=== PATIENT | male | born 1940 | race Hispanic/Latino ===

== ENCOUNTER → 2017-11-25 | Outpatient (CLI) | payer OTHER ==
[~2017-11-25] MED LIST: REGADENOSON 0.4 MG/5 ML PF SYG IVP SCH
== END | disposition home or self-care (01) ==
LOC: SHCH 08:40
PROVIDERS: ATTEND Internal Medicine Cardiovascular Disease
DX: R55 Syncope and collapse (principal)
CPT/HCPCS: 78452; 93017; 96374; A9500 ×2; J2785

== ENCOUNTER → 2017-12-02 | Outpatient (CLI) | payer OTHER | END | disposition home or self-care (01) | LOC: SHCH 12:46 | PROVIDERS: ATTEND Internal Medicine Cardiovascular Disease | DX: I07.1 Rheumatic tricuspid insufficiency (principal); R55 Syncope and collapse | CPT/HCPCS: 93306 ==

== ENCOUNTER → 2018-10-31 | Outpatient (CLI) | payer OTHER | END | disposition home or self-care (01) | LOC: SHCH 10:00 | PROVIDERS: ATTEND Internal Medicine Cardiovascular Disease | DX: I71.4 Abdominal aortic aneurysm, without rupture (principal) | CPT/HCPCS: 93978 ==

== ENCOUNTER → 2019-06-04 | Outpatient (CLI) | payer OTHER | END | disposition home or self-care (01) | LOC: SHCH 11:47 | PROVIDERS: ATTEND Internal Medicine Cardiovascular Disease | DX: I71.4 Abdominal aortic aneurysm, without rupture (principal) | CPT/HCPCS: 93978 ==

== ENCOUNTER → 2019-06-26 | Outpatient (CLI) | payer OTHER ==
[~2019-06-26] MED LIST changes: +IOHEXOL-350 75 ML VIAL IV ONE; -REGADENOSON 0.4 MG/5 ML PF SYG IVP SCH
== END | disposition home or self-care (01) ==
LOC: RAH 08:37
PROVIDERS: ATTEND Internal Medicine Cardiovascular Disease
DX: I71.4 Abdominal aortic aneurysm, without rupture (principal); N28.1 Cyst of kidney, acquired; K57.30 Diverticulosis of large intestine without perforation or abscess without bleeding; I70.8 Atherosclerosis of other arteries; I47.1 Supraventricular tachycardia; I10 Essential (primary) hypertension
CPT/HCPCS: 74174; Q9967

== ENCOUNTER 2021-11-24 15:03 | Emergency (ER) | payer OTHER ==
[~2021-11-24] VITALS: Ht 165.1 cm; Wt 72.6 kg
[2021-11-24] MEDS ORDERED: ONDANSETRON 4MG INJ IVP ONE (15:30)
[2021-11-24] MEDS ORDERED: 0.9%NACL 1000ML 1,000 ML IV ONE ×2 (15:30→15:40)
[2021-11-24] MEDS ORDERED: MECLIZINE HCL 25 MG TABLET PO ONE (15:30)
[2021-11-24 15:39] LABS: BASOPHILS % (AUTO) 0.7 % (0.0-5.0); EOSINOPHILS % (AUTO) 2.5 % (0.0-8.0); HEMATOCRIT 43.2 % (42-54); LYMPHOCYTES % (AUTO) 23.6 % (21.0-51.0); MEAN CORPUSCULAR HEMOGLOBIN 29.1 pg (27.0-33.0); MEAN CORPUSCULAR HGB CONC 34.3 g/dL (32.0-36.0); MONOCYTES % (AUTO) 9.1 % (3.0-13.0); NEUTROPHILS % (AUTO) 63.8 % (40.0-77.0); PLATELET COUNT (AUTO) 148 K/uL (130-400); RED BLOOD CELL COUNT(AUTO) 5.08 MIL/uL (4.50-6.20); RED CELL DISTRIBUTION WIDTH 12.6 % (11.0-15.5); WHITE BLOOD COUNT (AUTO) 6.8 K/uL (4.8-10.8)
[2021-11-24] MEDS ORDERED: MECLIZINE HCL 25 MG TABLET ONE (15:40)
[2021-11-24] MEDS ORDERED: ONDANSETRON 4MG INJ ONE (15:40)
[2021-11-24 15:52] LABS: CREATININE 1.7 mg/dL (0.5-1.5); POTASSIUM 3.8 mmol/L (3.5-5.1)
[2021-11-24 16:00] LABS: APPEARANCE,URINE Clear (CLEAR); BILIRUBIN,URINE Negative (NEGATIVE); COLOR,URINE Yellow (YELLOW); GLUCOSE, URINE (UA) Negative (NEGATIVE); KETONES,URINE Negative (NEGATIVE); LEUKOCYTE ESTERASE ,URINE Negative (NEGATIVE); NITRATE,URINE Negative (NEGATIVE); OCCULT BLOOD,URINE Negative (NEGATIVE); PROTEIN,URINE Negative (NEGATIVE)
[2021-11-24 16:02] LABS: ALBUMIN 3.4 g/dL (3.5-5.0); BILIRUBIN,TOTAL 0.8 mg/dL (0.2-1.0); TOTAL PROTEIN, SERUM 6.6 g/dL (6.0-8.3)
[2021-11-24] MEDS ORDERED: ONDA4TAB10 PO (16:40)
[2021-11-24] MEDS ORDERED: MECL-226 PO (16:40)
[2021-11-24 17:03] VITALS: BP 145/80
== END 2021-11-24 17:09 | disposition home or self-care (01) ==
LOC: EDH 15:03
DX: R42 Dizziness and giddiness (principal); E86.9 Volume depletion, unspecified; R11.2 Nausea with vomiting, unspecified; F03.90 Unspecified dementia, unspecified severity, without behavioral disturbance, psychotic disturbance, mood disturbance, and anxiety; E78.00 Pure hypercholesterolemia, unspecified; Z88.6 Allergy status to analgesic agent; Z90.89 Acquired absence of other organs; Z98.890 Other specified postprocedural states
CPT/HCPCS: 36415; 80053; 81003; 84484; 85025; 93005; 96361; 96374; 99284; J2405; J7030

== ENCOUNTER → 2023-02-09 | Outpatient (CLI) | payer OTHER ==
[~2023-02-09] MED LIST changes: -IOHEXOL-350 75 ML VIAL IV ONE; +MECL-226 PO; +ONDA4TAB10 PO
[2023-02-09 10:11] LABS: BASOPHILS % (AUTO) 0.9 % (0.0-5.0); EOSINOPHILS % (AUTO) 3.5 % (0.0-8.0); HEMATOCRIT 46.6 % (42-54); LYMPHOCYTES % (AUTO) 26.2 % (21.0-51.0); MEAN CORPUSCULAR HEMOGLOBIN 28.7 pg (27.0-33.0); MEAN CORPUSCULAR HGB CONC 32.8 g/dL (32.0-36.0); MEAN CORPUSCULAR VOLUME 87.3 fL (79-99); MONOCYTES % (AUTO) 10.4 % (3.0-13.0); NEUTROPHILS % (AUTO) 58.7 % (40.0-77.0); PLATELET COUNT (AUTO) 155 K/uL (130-400); RED BLOOD CELL COUNT(AUTO) 5.34 MIL/uL (4.50-6.20); RED CELL DISTRIBUTION WIDTH 13.7 % (11.0-15.5); WHITE BLOOD COUNT (AUTO) 7.5 K/uL (4.8-10.8)
[2023-02-09 10:19] LABS: HEMOGLOBIN A1C 5.5 % (4.0-6.0)
[2023-02-09 10:50] LABS: ALBUMIN 3.7 g/dL (3.5-5.0); CREATININE 1.8 mg/dL (0.5-1.5); POTASSIUM 4.2 mmol/L (3.5-5.1); THYROID STIMULATING HORMONE 2.16 uIU/mL (0.36-3.74); TOTAL PROTEIN, SERUM 7.3 g/dL (6.0-8.3)
== END | disposition home or self-care (01) ==
LOC: RAH 08:57
PROVIDERS: ATTEND Internal Medicine Gastroenterology
DX: R53.1 Weakness (principal); Z79.899 Other long term (current) drug therapy
CPT/HCPCS: 36415; 80053; 82306; 82607; 82746; 83036; 84443; 85025

== ENCOUNTER → 2023-10-28 | Outpatient (CLI) | payer OTHER ==
[2023-10-28 10:13] LABS: BASOPHILS # (AUTO) 0.06 K/uL (0.00-0.20); BASOPHILS % (AUTO) 0.9 % (0.0-5.0); EOSINOPHILS # (AUTO) 0.18 K/uL (0.00-0.70); EOSINOPHILS % (AUTO) 2.7 % (0.0-8.0); HEMATOCRIT 45.4 % (42-54); IMMATURE GRANULOCYTE ABSOLUTE 0.02 K/uL (0-1); LYMPHOCYTES # (AUTO) 1.6 K/uL (1.0-4.8); LYMPHOCYTES % (AUTO) 23.7 % (21.0-51.0); MEAN CORPUSCULAR HEMOGLOBIN 29.5 pg (27.0-33.0); MEAN CORPUSCULAR HGB CONC 33.9 g/dL (32.0-36.0); MONOCYTES # (AUTO) 0.6 K/uL (0.1-1.0); MONOCYTES % (AUTO) 9.3 % (3.0-13.0); NEUTROPHILS # (AUTO) 4.3 K/uL (1.8-7.7); NEUTROPHILS % (AUTO) 63.1 % (40.0-77.0); PLATELET COUNT (AUTO) 156 K/uL (130-400); RED BLOOD CELL COUNT(AUTO) 5.22 MIL/uL (4.50-6.20); RED CELL DISTRIBUTION WIDTH 12.9 % (11.0-15.5); WHITE BLOOD COUNT (AUTO) 6.7 K/uL (4.8-10.8)
[2023-10-28 10:59] LABS: ALBUMIN 3.5 g/dL (3.5-5.0); BILIRUBIN,TOTAL 1.3 mg/dL (0.2-1.0); CREATININE 1.6 mg/dL (0.5-1.3); POTASSIUM 4.3 mmol/L (3.5-5.1); THYROID STIMULATING HORMONE 2.52 uIU/mL (0.36-3.74); TOTAL PROTEIN, SERUM 6.9 g/dL (6.0-8.3)
== END | disposition home or self-care (01) ==
LOC: RAH 09:24
PROVIDERS: ATTEND Family Medicine
DX: Z00.00 Encounter for general adult medical examination without abnormal findings (principal); I10 Essential (primary) hypertension; E78.5 Hyperlipidemia, unspecified; M25.551 Pain in right hip
CPT/HCPCS: 36415; 73502; 80053; 80061; 84443; 85025

== ENCOUNTER 2025-07-13 21:16 | Emergency (ER) | payer OTHER ==
[~2025-07-13] VITALS: Ht 167.6 cm; Wt 64.4 kg
[~2025-07-13 21:16] MED LIST changes: +ONDA-243 PO; -ONDA4TAB10 PO
--- NOTE | 2025-07-13 22:46 | ERN ---
General Chief Complaint: Mechanical Fall Stated Complaint: FALL Time Seen by MD: 21:26 Source: patient History of Present Illness Initial Comments Patient is a an 85-year-old gentleman coming in after he fell down. Per patient he was help in his ambulate fell back 5 hours prior to arrival. He states he hit himself in the back of his neck he has got some discomfort in his neck. He is able to move his neck without limitations but some discomfort is present. Allergies: Coded Allergies: morphine (Unverified Allergy, Unknown, 05/05/17) Home Meds Active Scripts Meclizine HCl (Meclizine HCl) 12.5 Mg Tablet, 12.5 MG PO TIDP PRN for DIZZINESS, #12 TAB 0 Refills Prov:LÓPEZ WINN MD 11/24/21 Ondansetron (Ondansetron Odt) 4 Mg Tab.rapdis, 4 MG PO TIDP PRN for NAUSEA/VOMITING, #12 TAB 0 Refills Prov:LÓPEZ WINN MD 11/24/21 Past Medical History Past Medical History: Dementia, High Cholesterol Past Surgical History: Appendectomy Surgical History Other: KNEE Social History Social History: Other ROS Dictation CONSTITUTIONAL: No chills, no fever, no weakness, no diaphoresis, no malaise. HEAD/FACE: No signs of trauma. EENT: No eye pain, no blurred vision, no tearing, no double vision, no ear pain, no ear discharge, no nose pain, no nasal congestion, no throat pain, no throat swelling, no mouth pain. RESPIRATORY: No cough, no orthopnea, no SOB, no stridor, no wheezing. CARDIOVASCULAR: No chest pain, no edema, no palpitations, no syncope. GASTROINTESTINAL/ABDOMINAL: No abdominal pain, no constipation, no diarrhea, no nausea, no vomiting. GENITOURINARY: No abnormal discharge, no dysuria, no frequent urination, no hematuria. No complaints of pain in the genitals. MUSCULOSKELETAL: No back pain, no gout, no joint pain, no joint swelling, no muscle pain, no muscle stiffness,neck pain. INTEGUMENTARY: No change in color, no change in hair/nails, no dryness, no lesion, no lumps, no rash. NEUROLOGICAL/PSYCH: No anxiety, not depressed, no emotional problem, no headache, no numbness, no pre-existing deficit, no history of seizures, no tremors, no weakness. HEMATOLOGIC/LYMPHATIC: Not anemic, no history of blood clots, no apparent bleeding, no bruising, glands not swollen. All Systems Negative, Except as Noted. Physical Exam Physical Exam Dictation VITAL SIGNS: Reviewed. GENERAL APPEARANCE: Alert, oriented x3, no acute distress, obese. HEAD AND FACE: Non-traumatic. EYES: PERRL, pink conjunctivas, eyelid no trauma, anterior chamber clear. EARS: Pinnas intact and no signs of trauma or erythema. Ear canals clear and no discharge. TMs no erythema. NOSE: No discharge, no bleeding. OROPHARYNX: Mouth normal, teeth no caries, tongue pink. Pharynx clear, no erythema. Tonsils no exudates, no abscesses noted. Mucous membrane moist. NECK: Supple, non-tender, no thyromegaly, no masses, no JVD, no bruits. BREAST: Deferred. CHEST: No tenderness, no crepitus, no paradoxical movement, no retractions. LUNGS: Clear, well-ventilated, symmetric, no rales, no wheezing, no rhonchi, no stridor, good breath sounds bilaterally. HEART: Regular rate, regular rhythm, no murmur, no gallops. VASCULAR: No peripheral edema. ABDOMEN: Soft, positive bowel sounds, nondistended, no guarding, nontender, no rebound, no masses no hepatomegaly, no splenomegaly, no Solis's sign, no holly ias. RECTAL: Deferred. GENITAL: Deferred. NEUROLOGICAL: Normal speech, gross motor function intact, gross sensory function intact. MUSCULOSKELETAL: Neck tender, full range of motion, back nontender, full range of motion. EXTREMITIES: Nontender, full range of motion. SKIN: Color pink, dry, no turgor, no rash, no lacerations, no abrasions, no contusions. LYMPHATICS: Deferred. Results Laboratory and Microbiology Labs Reviewed?: Yes EKG/XRAY/US/CT/MRI CT Scan Comment [facility] [address] [place] [address] IMAGING REPORT Signed PATIENT: ABBIE LA MR#: [id number] : 1940 SEX: M AGE: 85 LOCATION: [facility] ORDER 33 STATUS: REG ER REPORT#: [id number] SERVICE 32 REASON: fall ORDERING PHYSICIAN: RACHAEL WEISS MD PROCEDURE: C SPIN WO - CT CERVICAL SPINE W/O CONTRAST EXAM: CT Cervical Spine Without IV contrast. CLINICAL HISTORY: Fall. TECHNIQUE: Axial computed tomography images of the cervical spine without intravenous contrast. Sagittal and coronal reconstructions are available and reviewed. A CT scan is done according to ALARA (As Low As Reasonably Achievable). COMPARISON: None provided. FINDINGS: ALIGNMENT: Straightening of the cervical lordosis, which may represent paraspinal muscle spasm. 8 to 9 mm malalignment between the lateral masses of the atlas and axissuggests rotatory subluxation versus instability- Best appreciated in image 40 of series 8. DEGENERATIVE CHANGES: Multilevel moderate spondylosis. Moderate diffuse disc bulge from C3-C4 through C6-C7 levels in the form of disc osteophyte complex and bilateral uncovertebral joint spurring causing indentation on the anterior thecal sac, moderate narrowing of the bilateral neural foramina, with possible impingement on the exiting nerve roots. No significant bony spinal canal stenosis. SOFT TISSUES: The prevertebral soft tissues are within normal limits. BONES: Incompletely imaged deformed right mid-clavicle. No acute fracture or aggressive-appearing osseous lesion. IMPRESSION: No acute fracture. Malalignment between the lateral masses of the atlas and axis suggests rotatory subluxation versus instability. Moderate spondylosis. Mild bony neural foraminal stenosis from C3-C4 to C6-C7 levels. No significant spinal canal stenosis. Straightening of the cervical lordosis, which may represent paraspinal muscle spasm. Incompletely imaged deformed right mid-clavicle, likely of chronic etiology. Recommended MRI for further evaluation. /[place]irby DICTATED BY: LARISSA MARTEL Jr., MD DATE: 07/14/2516 ELECTRONICALLY SIGNED BY: LARISSA MARTEL Jr., MD DATE: 07/14/2516 [facility] MDM: Differential diagnosis: Fall, neck strain, muscle strain, Rationale: Tests considered and ordered secondary to shared decision making include: Previous outside records reviewed: Old ER visits. Risk of complication and/or morbidity or mortality of patient management: None Medications-Per medication reconciliation Need for hospitalization: Patient does not meet criteria for hospitalization. Need for emergency major/minor surgery: No Patient is a 85-year-old coming in complaining of neck discomfort. Patient states he does not have any radiculopathy or neuropathy. CT disclosed a malalignment to the lateral masses of the at less than axis, recommendation may include immobilization physical therapy or surgical intervention in the pending in his severity of the condition. I will place a cervical soft collar and we will advise patient appropriate follow up with PCP and/or neurosurgeon. On physical exam no cord compression symptoms such as radiculopathy or weakness on his extremities present. Patient has been started with a softball has been advise him red flags to look for such as radiculopathy or muscular weakness. ED Course Orders Procedure Category Date Status Time Ct Cervical Spine W/O CT 07/13/25 Resulted Contrast 21:33 Vital Signs Date Time Temp Pulse Resp B/P (MAP) Pulse Ox O2 Delivery O2 Flow Rate FiO2 07/13/25 21:24 96.1 60 16 164/93 97 Room Air DX & DISP Disposition: Discharge Departure Impression: Primary Impression: Atlanto-axial subluxation Condition: Stable Additional Instructions: FOLLOW-UP WITH PRIMARY CARE PROVIDER IN 1 TO 2 DAYS. TAKE MEDICATIONS DIRECTED HERE IN THE EMERGENCY ROOM. OKAY TO CONTINUE HOME MEDICATIONS UNLESS OTHERWISE DISCUSSED DURING YOUR VISIT IN THE EMERGENCY ROOM TODAY. RETURN TO YOUR NEAREST EMERGENCY ROOM IF SYMPTOMS WORSEN OR IF THERE IS NO IMPROVEMENT. C ALL 911 IF YOU NEED IMMEDIATE ASSISTANCE. TAKE TYLENOL [id number] NEEDED AND IF NO CONTRAINDICATIONS ARE PRESENT. INCREASE ORAL HYDRATION. A WOUND CULTURE OR URINE CULTURE WAS ORDERED HERE IN THE EMERGENCY ROOM DEPARTMENT PLEASE FOLLOW-UP WITH PRIMARY CARE PROVIDER AND ADVISE THEM TO GET REPORTS FROM OUR FACILITY. IF YOU HAD ANY MANUEL WRAP/SPLINTS THAT WERE APPLIED HERE, PLEASE DO NOT REMOVE THEM UNTIL YOU SEE YOUR PRIMARY CARE OR SPECIALTY. Referrals: Referrals: JOSE F THURSTON Jr., MD (PCP) ALYSON LERNER MD Time of Disposition: 23:28 RACHAEL WEISS MD Jul 13, 2025 22:46
--- NOTE | 2025-07-13 23:19 | HMCIMG ---
EXAM: CT Cervical Spine Without IV contrast. CLINICAL HISTORY: Fall. TECHNIQUE: Axial computed tomography images of the cervical spine without intravenous contrast. Sagittal and coronal reconstructions are available and reviewed. A CT scan is done according to ALARA (As Low As Reasonably Achievable). COMPARISON: None provided. FINDINGS: ALIGNMENT: Straightening of the cervical lordosis, which may represent paraspinal muscle spasm. 8 to 9 mm malalignment between the lateral masses of the atlas and axissuggests rotatory subluxation versus instability- Best appreciated in image 40 of series 8. DEGENERATIVE CHANGES: Multilevel moderate spondylosis. Moderate diffuse disc bulge from C3-C4 through C6-C7 levels in the form of disc osteophyte complex and bilateral uncovertebral joint spurring causing indentation on the anterior thecal sac, moderate narrowing of the bilateral neural foramina, with possible impingement on the exiting nerve roots. No significant bony spinal canal stenosis. SOFT TISSUES: The prevertebral soft tissues are within normal limits. BONES: Incompletely imaged deformed right mid-clavicle. No acute fracture or aggressive-appearing osseous lesion. IMPRESSION: No acute fracture. Malalignment between the lateral masses of the atlas and axis suggests rotatory subluxation versus instability. Moderate spondylosis. Mild bony neural foraminal stenosis from C3-C4 to C6-C7 levels. No significant spinal canal stenosis. Straightening of the cervical lordosis, which may represent paraspinal muscle spasm. Incompletely imaged deformed right mid-clavicle, likely of chronic etiology. Recommended MRI for further evaluation. /[place]
[2025-07-13 23:28] VITALS: BP 162/92; PULSE 68; RESP 18; TEMP 96.2; O2SAT 98
--- NOTE | 2025-07-13 23:43 | NUR ---
PATIENT PLACED IN SOFT C-COLLAR ORDERED BY ED MD
== END 2025-07-13 23:49 | disposition home or self-care (01) ==
LOC: EDH 21:16
DX: S13.120A Subluxation of C1/C2 cervical vertebrae, initial encounter (principal); E78.00 Pure hypercholesterolemia, unspecified; F03.90 Unspecified dementia, unspecified severity, without behavioral disturbance, psychotic disturbance, mood disturbance, and anxiety; Z88.5 Allergy status to narcotic agent; Z90.49 Acquired absence of other specified parts of digestive tract; W18.39XA Other fall on same level, initial encounter; Y93.89 Activity, other specified; Y92.89 Other specified places as the place of occurrence of the external cause; Y99.8 Other external cause status
CPT/HCPCS: 72125; 99284